=== PATIENT | male | born 1940 | race Caucasian/White ===

== ENCOUNTER 2019-10-05 10:36 | Day surgery (SDC) | payer MEDICARE ==
[~2019-10-05] VITALS: Ht 170.2 cm; Wt 65.8 kg
[2019-10-05 11:08] VITALS: BP 122/79
[2019-10-05] MEDS ORDERED: SODIUM CHLORIDE 0.9% 1,000 ML IV SCH (11:09)
[2019-10-05] MEDS ORDERED: CEFAZOLIN PMX 1GM/50ML 50 ML IV ONE (11:30)
[2019-10-05] MEDS ORDERED: FLUMAZENIL 0.1 MG/1 ML, 5ML ONE (12:57)
[2019-10-05] MEDS ORDERED: NALOXONE 1 MG/ML, 2ML ONE (12:57)
[2019-10-05] MEDS ORDERED: FENTANYL PF 100 MCG/2ML ONE (12:57)
[2019-10-05] MEDS ORDERED: MIDAZOLAM 1 MG/ML, 5ML ONE ×2 (12:58)
== END 2019-10-05 15:20 | disposition home or self-care (01) ==
LOC: OUT 10:36
PROVIDERS: ATTEND Urology
DX: N32.0 Bladder-neck obstruction (principal); C61 Malignant neoplasm of prostate; I48.91 Unspecified atrial fibrillation; I42.9 Cardiomyopathy, unspecified; E11.9 Type 2 diabetes mellitus without complications; Z86.73 Personal history of transient ischemic attack (TIA), and cerebral infarction without residual deficits; I10 Essential (primary) hypertension; Z82.49 Family history of ischemic heart disease and other diseases of the circulatory system; Z83.3 Family history of diabetes mellitus
CPT/HCPCS: 51102; 77002; 99156; 99157; C1725; C1769; J0690; J2250; J3010; J7030; 75989; J2310